=== PATIENT | male | born 1955 | race Caucasian/White ===

== ENCOUNTER 2018-03-20 05:37 | Emergency (ER) | payer OTHER, SELFPAY ==
[2018-03-20] MEDS ORDERED: Ketorolac Tromethamine 60 MG/2 ML VIAL ONE (05:57)
[2018-03-20] MEDS ORDERED: Dexamethasone 10 MG/ML VIAL ONE (05:57)
--- NOTE | 2018-03-20 08:11 | RAD ---
RIGHT SHOULDER 3 VIEWS: HISTORY: Right shoulder pain. FINDINGS: Acromioclavicular and glenohumeral alignment are maintained. Mild to moderate osteophytosis. No acu te fracture, dislocation, or aggressive osseous erosions. IMPRESSION: Mild osteoarthritic changes right shoulder. POS: BAKARI
== END 2018-03-20 06:18 | disposition home or self-care (01) ==
LOC: ERS 05:37
DX: M75.41 Impingement syndrome of right shoulder (principal); M19.90 Unspecified osteoarthritis, unspecified site; F17.210 Nicotine dependence, cigarettes, uncomplicated
CPT/HCPCS: 96372; J1100; J1885

== ENCOUNTER 2018-04-01 07:17 | Emergency (ER) | payer SELFPAY ==
[2018-04-01] MEDS ORDERED: Ketorolac Tromethamine 60 MG/2 ML VIAL ONE (09:00)
== END 2018-04-01 09:27 | disposition home or self-care (01) ==
LOC: ERS 07:17
DX: M75.41 Impingement syndrome of right shoulder (principal); F17.210 Nicotine dependence, cigarettes, uncomplicated; Z79.899 Other long term (current) drug therapy
CPT/HCPCS: 96372; 99406; J1885

== ENCOUNTER 2018-05-15 06:02 | Emergency (ER) | payer SELFPAY | END 2018-05-15 07:28 | disposition home or self-care (01) | LOC: ERS 06:02 | DX: M25.511 Pain in right shoulder (principal); L02.415 Cutaneous abscess of right lower limb; L02.416 Cutaneous abscess of left lower limb; M19.90 Unspecified osteoarthritis, unspecified site; F17.210 Nicotine dependence, cigarettes, uncomplicated | CPT/HCPCS: 99283 ==

== ENCOUNTER 2019-02-15 15:24 | Emergency (ER) | payer MEDICARE, SELFPAY ==
[2019-02-15] MEDS ORDERED: Piperacillin/Tazobactam 4.5 GM VIAL ONE (15:53)
[2019-02-15 16:05] LABS: #Basophils 0.1 thou/uL (0.0-0.2); #Eosinphils 0.1 thou/uL (0.0-0.7); #Lymphocytes 1.9 thou/uL (1.20-3.40); #Monocytes 0.8 thou/uL (0.11-0.59); #Neutrophils 8.5 thou/uL (1.40-6.50); %Basophils 0.8 % (0.0-1.0); %Eosinophils 0.9 % (0.0-10.0); %Lymphocytes 16.7 % (21.0-51.0); %Monocytes 7.2 % (0.0-10.0); %Neutrophils 74.4 % (42.0-75.0); Hemoglobin 14.3 g/dL (14.0-18.0); Mean Corpuscular HGB CONC 33.7 g/dL (32.0-36.0); Mean Corpuscular Hemoglobin 30.2 pg (27.0-31.0); Mean Corpuscular Volume 89.6 fL (78.0-98.0); Mean Platelet Volume 7.3 fL (7.4-10.4); Platelet Count 460 thou/uL (130-400); RBC Distribution Width 12.7 % (11.5-14.5); Red Blood Cell (RBC) Count 4.74 mill/uL (4.70-6.10); White Blood Cell (WBC) Count 11.4 thou/uL (4.8-10.8)
[2019-02-15 16:31] LABS: ALT (SGPT) 25 U/L (8-55); AST (SGOT) 15 U/L (5-34); Albumin 4.1 g/dL (3.4-4.8); Alkaline Phosphatase 136 U/L (40-150); Anion Gap 13 mmol/L (10-20); BUN (Urea Nitrogen) 14 mg/dL (8.4-25.7); Bilirubin, Total 0.7 mg/dL (0.2-1.2); Calc. Creatinine Clearance 0 mL/min (70-130); Calcium 9.4 mg/dL (7.8-10.44); Carbon Dioxide 28 mmol/L (23-31); Chloride 104 mmol/L (98-107); Estimated GFR-MDRD 85; Glucose 112 mg/dL (80-115); Potassium 4.1 mmol/L (3.5-5.1); Protein, Total 7.1 g/dL (5.8-8.1); Sodium 141 mmol/L (136-145)
--- NOTE | 2019-02-15 16:34 | RAD ---
RIGHT ELBOW FOUR VIEWS: History: Elbow pain after trauma. FINDINGS: There is soft tissue swelling posterior to the elbow. There is prominence in the region of the olecra non bursa and an avulsive type injury form the olecranon which is probably related to patient's histo ry of trauma approximately one week ago. IMPRESSION: Soft tissue swelling associated with small avulsive type injury involving the olecranon. No elbow gus nt effusion. POS: BAKARI
== END 2019-02-15 18:30 | disposition home or self-care (01) ==
LOC: ERS 15:24
DX: S52.021A Displaced fracture of olecranon process without intraarticular extension of right ulna, initial encounter for closed fracture (principal); L03.113 Cellulitis of right upper limb; M19.90 Unspecified osteoarthritis, unspecified site; F17.210 Nicotine dependence, cigarettes, uncomplicated; W22.8XXA Striking against or struck by other objects, initial encounter
CPT/HCPCS: 36415; 80053; 83605; 85025; 87040; 96365; 96366; 96367; J2543; J3370

== ENCOUNTER 2019-02-17 15:18 | Emergency (ER) | payer MEDICARE | END 2019-02-17 16:02 | disposition home or self-care (01) | LOC: ERS 15:18 | DX: L50.0 Allergic urticaria (principal); T36.8X5A Adverse effect of other systemic antibiotics, initial encounter; T36.1X5A Adverse effect of cephalosporins and other beta-lactam antibiotics, initial encounter; L03.113 Cellulitis of right upper limb | CPT/HCPCS: 99283 ==

== ENCOUNTER 2019-03-28 03:53 | Emergency (ER) | payer MEDICARE ==
[2019-03-28] MEDS ORDERED: Bacitracin Zinc 1 Packet ONE (04:39)
== END 2019-03-28 05:16 | disposition home or self-care (01) ==
LOC: ERS 03:53
DX: L03.113 Cellulitis of right upper limb (principal); R23.4 Changes in skin texture; M19.90 Unspecified osteoarthritis, unspecified site; F17.210 Nicotine dependence, cigarettes, uncomplicated; Z79.899 Other long term (current) drug therapy
CPT/HCPCS: 99283

== ENCOUNTER 2023-07-05 18:21 | Inpatient (IN) | payer OTHER ==
[~2023-07-05 18:21] MED LIST: Iopamidol-370 76% 500 ML MDV (1 ML CHARGE) ONE
[2023-07-05 19:02] LABS: #Monocytes 0.6 thou/uL (0.11-0.59); #Neutrophils 7.6 thou/uL (1.40-6.50); %Basophils 0.3 % (0.0-1.0); %Lymphocytes 6.4 % (21.0-51.0); %Monocytes 7.2 % (0.0-10.0); %Neutrophils 85.5 % (42.0-75.0); Hemoglobin 12.7 g/dL (14.0-18.0); Mean Corpuscular HGB CONC 32.6 g/dL (32.0-36.0); Mean Corpuscular Hemoglobin 28.6 pg (27.0-31.0); Mean Corpuscular Volume 87.8 fl (78.0-98.0); Mean Platelet Volume 9.5 fL (7.4-10.4); Platelet Count 260 10x3/uL (130-400); RBC Distribution Width 14.1 % (11.5-14.5); Red Blood Cell (RBC) Count 4.44 mill/uL (4.70-6.10); White Blood Cell (WBC) Count 8.8 10x3/uL (4.8-10.8)
[2023-07-05] MEDS ORDERED: cefTRIAXone (ROCEPHIN) 2 GM VIAL ONE (19:07)
[2023-07-05 19:25] LABS: ALT (SGPT) 12 U/L (8-55); AST (SGOT) 17 U/L (5-34); Albumin 3.9 g/dL (3.4-4.8); Alkaline Phosphatase 111 U/L (40-110); Anion Gap 14 mmol/L (10-20); BUN (Urea Nitrogen) 10 mg/dL (8.4-25.7); Bilirubin, Total 2.1 mg/dL (0.2-1.2); Calc. Creatinine Clearance 0 mL/min (70-130); Calcium 9.1 mg/dL (7.8-10.44); Carbon Dioxide 24 mmol/L (23-31); Chloride 103 mmol/L (98-107); Estimated GFR 77; Globulin 3.6 g/dL (2.4-3.5); Glucose 106 mg/dL (80-115); Potassium 3.7 mmol/L (3.5-5.1); Protein, Total 7.5 g/dL (5.8-8.1); Sodium 137 mmol/L (136-145)
[2023-07-05] MEDS ORDERED: Azithromycin 500 MG VIAL ONE (19:42)
[2023-07-05 19:49] LABS: SARS-CoV-2 NAA Rapid Test Not Detected (NotDetected)
[2023-07-05] MEDS ORDERED: Senokot S 8.6-50 MG TAB PO PRN (20:14)
[2023-07-05] MEDS ORDERED: Calcium Carbonate 500 MG ChewTAB PO PRN (20:14)
[2023-07-05] MEDS ORDERED: Ondansetron ODT 4 MG TAB PO PRN (20:14)
[2023-07-05] MEDS ORDERED: Ipratropium/Albuterol 3 ML NEB NEB PRN (20:16)
[2023-07-05 21:45] LABS: Bacteria/HPF None Seen HPF (None Seen); Bilirubin Negative (Negative); Blood, Urine Negative (Negative); CAUTI Indications for Culture Alt mental st,lethar; Clarity Clear (Clear); Glucose, Urine (Dipstick) Normal (Negative); Ketone, Urine 10 mg/dL (Negative); Leukocyte Negative Leu/uL (Negative); Nitrite Negative (Negative); Protein, Urine (Dipstick) 10 mg/dL (Neg-Trace); RBC/HPF 0-3 HPF (0-3); Specific Gravity, Urine 1.039 (1.002-1.036); Squamous Epithelial None Seen HPF (0-3); Urobilinogen Normal mg/dL (Less than 2); WBC/HPF 0-3 HPF (0-3)
[2023-07-05 21:47] LABS: Sperm/HPF 2+ HPF (None Seen)
[2023-07-05 21:48] LABS: Urine Culture Reflex No No
[2023-07-05] MEDS: Famotidine 20 MG TAB PO SCH (22:53)
[2023-07-05 23:42] VITALS: BMI 24.4
[2023-07-06] MEDS: Acetaminophen 325 MG TAB PO PRN ×2 (04:28→17:02)
[2023-07-06 06:45] LABS: #Monocytes 0.9 thou/uL (0.11-0.59); #Neutrophils 5.5 thou/uL (1.40-6.50); %Basophils 0.4 % (0.0-1.0); %Lymphocytes 12.7 % (21.0-51.0); %Neutrophils 74.4 % (42.0-75.0); Hemoglobin 12.2 g/dL (14.0-18.0); Mean Corpuscular HGB CONC 32.1 g/dL (32.0-36.0); Mean Corpuscular Hemoglobin 28.4 pg (27.0-31.0); Mean Corpuscular Volume 88.4 fl (78.0-98.0); Mean Platelet Volume 9.6 fL (7.4-10.4); Platelet Count 220 10x3/uL (130-400); RBC Distribution Width 14.3 % (11.5-14.5); White Blood Cell (WBC) Count 7.4 10x3/uL (4.8-10.8)
[2023-07-06 07:08] LABS: Anion Gap 13 mmol/L (10-20); BUN (Urea Nitrogen) 10 mg/dL (8.4-25.7); Calc. Creatinine Clearance 92 mL/min (70-130); Calcium 8.6 mg/dL (7.8-10.44); Carbon Dioxide 23 mmol/L (23-31); Chloride 104 mmol/L (98-107); Estimated GFR 92; Glucose 100 mg/dL (80-115); Potassium 3.6 mmol/L (3.5-5.1); Sodium 136 mmol/L (136-145)
[2023-07-06] MEDS: cefTRIAXone\\ROCEPHIN 1 GM in Sodium Chloride 0.9% 100 ML IVPB SCH (08:24)
[2023-07-06] MEDS: Famotidine 20 MG TAB PO SCH ×2 (08:24→19:58)
[2023-07-07] MEDS: Acetaminophen 325 MG TAB PO PRN (00:17)
[2023-07-07] MEDS: Famotidine 20 MG TAB PO SCH ×2 (07:55→20:41)
[2023-07-07] MEDS: cefTRIAXone\\ROCEPHIN 1 GM in Sodium Chloride 0.9% 100 ML IVPB SCH (07:55)
[2023-07-07] MEDS ORDERED: VANCOMYCIN 1.75 GM/500 ML BAG 1.75 GM in Premix Bag 1 BAG IVPB SCH (16:15)
[2023-07-08] MEDS: Vancomycin 1 GM in Premix Bag 1 BAG IVPB SCH ×2 (06:16→17:24)
[2023-07-08 07:39] LABS: #Eosinphils 0.2 thou/uL (0.0-0.7); #Monocytes 0.7 thou/uL (0.11-0.59); #Neutrophils 3.6 thou/uL (1.40-6.50); %Basophils 0.5 % (0.0-1.0); %Eosinophils 3.1 % (0.0-10.0); %Lymphocytes 21.5 % (21.0-51.0); %Monocytes 12.6 % (0.0-10.0); Hematocrit 40.4 % (42.0-52.0); Hemoglobin 13.3 g/dL (14.0-18.0); Mean Corpuscular HGB CONC 32.9 g/dL (32.0-36.0); Mean Corpuscular Hemoglobin 28.5 pg (27.0-31.0); Mean Corpuscular Volume 86.7 fl (78.0-98.0); Mean Platelet Volume 9.8 fL (7.4-10.4); Platelet Count 233 10x3/uL (130-400); RBC Distribution Width 13.7 % (11.5-14.5); Red Blood Cell (RBC) Count 4.66 mill/uL (4.70-6.10); White Blood Cell (WBC) Count 5.8 10x3/uL (4.8-10.8)
[2023-07-08 08:03] LABS: Anion Gap 12 mmol/L (10-20); BUN (Urea Nitrogen) 12 mg/dL (8.4-25.7); Calc. Creatinine Clearance 104 mL/min (70-130); Calcium 8.6 mg/dL (7.8-10.44); Carbon Dioxide 23 mmol/L (23-31); Chloride 103 mmol/L (98-107); Estimated GFR 97; Glucose 109 mg/dL (80-115); Potassium 3.6 mmol/L (3.5-5.1); Sodium 134 mmol/L (136-145)
[2023-07-08] MEDS: Famotidine 20 MG TAB PO SCH ×2 (09:16→19:57)
[2023-07-09 05:05] LABS: #Eosinphils 0.3 thou/uL (0.0-0.7); #Monocytes 0.5 thou/uL (0.11-0.59); #Neutrophils 3.2 thou/uL (1.40-6.50); %Basophils 0.6 % (0.0-1.0); %Eosinophils 6.3 % (0.0-10.0); %Lymphocytes 24.3 % (21.0-51.0); %Monocytes 9.4 % (0.0-10.0); %Neutrophils 59.2 % (42.0-75.0); Hematocrit 41.9 % (42.0-52.0); Hemoglobin 13.7 g/dL (14.0-18.0); Mean Corpuscular HGB CONC 32.7 g/dL (32.0-36.0); Mean Corpuscular Hemoglobin 28.6 pg (27.0-31.0); Mean Corpuscular Volume 87.5 fl (78.0-98.0); Mean Platelet Volume 9.6 fL (7.4-10.4); Platelet Count 272 10x3/uL (130-400); RBC Distribution Width 13.6 % (11.5-14.5); Red Blood Cell (RBC) Count 4.79 mill/uL (4.70-6.10); White Blood Cell (WBC) Count 5.4 10x3/uL (4.8-10.8)
[2023-07-09] MEDS: Vancomycin 1 GM in Premix Bag 1 BAG IVPB SCH (05:15)
[2023-07-09 05:37] LABS: Anion Gap 6 mmol/L (10-20); BUN (Urea Nitrogen) 15 mg/dL (8.4-25.7); Calc. Creatinine Clearance 90 mL/min (70-130); Calcium 9.1 mg/dL (7.8-10.44); Carbon Dioxide 23 mmol/L (23-31); Chloride 106 mmol/L (98-107); Estimated GFR 90; Glucose 97 mg/dL (80-115); Potassium 3.8 mmol/L (3.5-5.1); Sodium 131 mmol/L (136-145)
[2023-07-09 05:38] LABS: Vancomycin, Trough 11.4 ug/mL
[2023-07-09] MEDS: Famotidine 20 MG TAB PO SCH ×2 (08:23→20:59)
[2023-07-09] MEDS: Acetaminophen 325 MG TAB PO PRN (08:24)
[2023-07-09] MEDS: VANCOMYCIN 1.25 GM/250 ML BAG 1.25 GM in Premix Bag 1 BAG IVPB SCH (17:35)
[2023-07-10 00:07] VITALS: BP 124/77
[2023-07-10] MEDS: diphenhydrAMINE 25 MG CAP PO PRN ×2 (03:42→08:38)
[2023-07-10] MEDS: VANCOMYCIN 1.25 GM/250 ML BAG 1.25 GM in Premix Bag 1 BAG IVPB SCH (05:52)
[2023-07-10 08:06] VITALS: TEMP 97.3
[2023-07-10 08:10] LABS: #Basophils 0.1 thou/uL (0.0-0.2); #Eosinphils 0.3 thou/uL (0.0-0.7); #Monocytes 0.6 thou/uL (0.11-0.59); #Neutrophils 3.1 thou/uL (1.40-6.50); %Basophils 0.9 % (0.0-1.0); %Lymphocytes 27.3 % (21.0-51.0); %Monocytes 9.9 % (0.0-10.0); %Neutrophils 55.4 % (42.0-75.0); Hematocrit 42.9 % (42.0-52.0); Hemoglobin 13.9 g/dL (14.0-18.0); Mean Corpuscular HGB CONC 32.4 g/dL (32.0-36.0); Mean Corpuscular Hemoglobin 28.4 pg (27.0-31.0); Mean Corpuscular Volume 87.6 fl (78.0-98.0); Mean Platelet Volume 9.6 fL (7.4-10.4); Platelet Count 288 10x3/uL (130-400); RBC Distribution Width 13.5 % (11.5-14.5); White Blood Cell (WBC) Count 5.6 10x3/uL (4.8-10.8)
[2023-07-10] MEDS: Famotidine 20 MG TAB PO SCH (08:38)
[2023-07-10] MEDS: Acetaminophen 325 MG TAB PO PRN (08:39)
== END 2023-07-10 16:45 | disposition home or self-care (01) | DRG 872 ==
LOC: ERS 18:21 → T4-B 20:34 → OBSVTOIN 07-08 09:53
PROVIDERS: ADMIT Student in an Organized Health Care Education/Training Program; ATTEND Internal Medicine Critical Care Medicine
DX: A41.59 Other Gram-negative sepsis (principal); L30.9 Dermatitis, unspecified; M79.89 Other specified soft tissue disorders; R53.1 Weakness; Z20.822 Contact with and (suspected) exposure to COVID-19; H91.92 Unspecified hearing loss, left ear; Z90.89 Acquired absence of other organs; Z90.49 Acquired absence of other specified parts of digestive tract; Z98.890 Other specified postprocedural states; Z87.891 Personal history of nicotine dependence; Z79.51 Long term (current) use of inhaled steroids; Z88.8 Allergy status to other drugs, medicaments and biological substances; Z88.2 Allergy status to sulfonamides; Z79.899 Other long term (current) drug therapy
CPT/HCPCS: 36415; 36416; 70450; 71045; 71260; 76705; 80048; 80053; 80202; 81001; 83605; 83880; 85025; 87040; 93005; 93306; 93970; 96365; 96367; J0456; J0696; J3370; J3370-JW; J3490; Q9967

== ENCOUNTER 2024-03-03 16:32 | Emergency (ER) | payer MEDICARE, OTHER | END 2024-03-03 18:07 | disposition home or self-care (01) | LOC: ERS 16:32 | DX: T16.1XXA Foreign body in right ear, initial encounter (principal); Z55.6 Problems related to health literacy; Z87.891 Personal history of nicotine dependence | CPT/HCPCS: 69200; 99282 ==